=== PATIENT | female | born 1970 | race Caucasian/White ===

== ENCOUNTER 2018-04-08 11:29 | Emergency (ER) | payer MEDICAID ==
[~2018-04-08] VITALS: Ht 167.6 cm; Wt 64.8 kg
[~2018-04-08 11:29] MED LIST: BACI3.5O2 RIGHTEYE; NO HOME MEDS; RANI-366 PO; TOBR5DRO2 RIGHTEYE; ZOF4T PO; [UNRECOGNIZED DRUG - CODE] EACHEYE
[2018-04-08] MEDS ORDERED: ondansetron/PF 4mg/2ml inj IV ONE (12:05)
[2018-04-08] MEDS ORDERED: normal saline 1000ML IV soln IVB ONE (12:05)
[2018-04-08] MEDS ORDERED: morphine 4 MG/ML inj SYRINge IV PRN (12:05)
[2018-04-08 12:51] LABS: BASOPHILS % (AUTO) 0.2 % (0-1); EOSINOPHILS % (AUTO) 0.1 % (0-6); HEMATOCRIT 38.2 % (35.0-45.0); HEMOGLOBIN 11.9 g/dl (12.0-16.0); LYMPHOCYTES # (AUTO) 0.8 X10'3 (1.1-4.8); LYMPHOCYTES % (AUTO) 8.3 % (21-51); MEAN CORPUSCULAR HEMOGLOBIN 21.1 PG (27.0-31.0); MEAN CORPUSCULAR HGB CONC 31.2 % (33.0-36.5); MEAN CORPUSCULAR VOLUME 67.5 FL (78-98); MONOCYTES % (AUTO) 9.9 % (2-12); NEUTROPHILS # (AUTO) 8.1 X10'3 (1.8-7.7); NEUTROPHILS % (AUTO) 81.5 % (42-75); PLATELET COUNT 491 X10'3 (140-440); RED BLOOD COUNT 5.66 X10'6 (4.20-5.60); RED CELL DISTRIBUTION WIDTH 21.8 % (11.5-14.5); WHITE BLOOD COUNT 9.9 X10'3 (4.5-11.0)
[2018-04-08 12:52] VITALS: BP 119/70
[2018-04-08 13:02] LABS: PROTHROMBIN TIME 10.1 SECONDS (9.0-12.0)
[2018-04-08 13:05] LABS: ALANINE AMINOTRANSFERASE 19 U/L (12-78); ALBUMIN 3.3 G/DL (3.4-5.0); ALBUMIN/GLOBULIN RATIO 0.6 (1.1-1.5); ALKALINE PHOSPHATASE 121 IU/L (46-116); ANION GAP 13 (8-16); ASPARTATE AMINO TRANSFERASE 24 U/L (10-37); BILIRUBIN,TOTAL 0.5 MG/DL (0.1-1.0); BLOOD UREA NITROGEN 19 MG/DL (7-18); BUN/CREATININE RATIO 17.8 (6.6-38.0); CALCIUM 9.5 MG/DL (8.5-10.1); CHLORIDE 93 MMOL/L (99-107); CREATININE 1.07 MG/DL (0.40-0.90); GLUCOSE 98 MG/DL (70-104); LIPASE 200 U/L (73-393); POTASSIUM 3.4 MMOL/L (3.5-5.1); SODIUM 134 MMOL/L (135-145); TOTAL CARBON DIOXIDE 28.4 MMOL/L (24-32); TOTAL PROTEIN 8.9 G/DL (6.4-8.2); eGFR 55 ML/MIN
[2018-04-08] MEDS ORDERED: CIPR-230 PO (13:11)
[2018-04-08] MEDS ORDERED: ONDA4TAB9 PO (13:11)
[2018-04-08 13:19] LABS: TOTAL CELLS COUNTED 100
[2018-04-08 13:24] LABS: ANISOCYTOSIS 3+; HYPOCHROMASIA 1+; MICROCYTOSIS 2+; PLATELET ESTIMATE INCREASED; POLYCHROMASIA FEW; STOMATOCYTES 1+
== END 2018-04-08 13:44 | disposition home or self-care (01) ==
LOC: ER 11:30
DX: R11.10 Vomiting, unspecified (principal); R19.7 Diarrhea, unspecified; E86.0 Dehydration; K21.9 Gastro-esophageal reflux disease without esophagitis; J45.909 Unspecified asthma, uncomplicated; F15.90 Other stimulant use, unspecified, uncomplicated; Z90.49 Acquired absence of other specified parts of digestive tract; Z86.19 Personal history of other infectious and parasitic diseases; Z60.2 Problems related to living alone; Z59.0 Homelessness; Z56.0 Unemployment, unspecified; Z88.5 Allergy status to narcotic agent; Z79.2 Long term (current) use of antibiotics; Z79.899 Other long term (current) drug therapy
CPT/HCPCS: 36415; 80053; 83690; 85025; 85610; 96361; 96374; 99284; J2405; J2270

== ENCOUNTER 2018-08-04 09:29 | Emergency (ER) | payer MEDICAID ==
[~2018-08-04] VITALS: Ht 167.6 cm; Wt 76.0 kg
[2018-08-04 09:39] VITALS: BP 121/76
[2018-08-04] MEDS ORDERED: sulfamethoxazole/trimethoprim DS (800/160mg) tablet PO ONE (10:25)
[2018-08-04] MEDS ORDERED: cephalexin 250mg capsule PO ONE (10:25)
[2018-08-04] MEDS ORDERED: CEPH-572 PO (10:32)
[2018-08-04] MEDS ORDERED: SULF1TAB49 PO (10:32)
[2018-08-04 10:37] LABS: HEMOGLOBIN 11.7 g/dl (12.0-16.0); MEAN PLATELET VOLUME 6.9 FL (7.4-10.4); PLATELET COUNT 408 X10'3 (140-440)
[2018-08-04 10:39] LABS: HEMATOCRIT 37.8 % (35.0-45.0); MEAN CORPUSCULAR HEMOGLOBIN 22.1 PG (27.0-31.0); MEAN CORPUSCULAR HGB CONC 30.9 g/dL (33.0-36.5); MEAN CORPUSCULAR VOLUME 71.5 FL (78-98); RED BLOOD COUNT 5.29 X10'6 (4.20-5.60); RED CELL DISTRIBUTION WIDTH 22.8 % (11.5-14.5)
[2018-08-04 10:57] LABS: TOTAL CELLS COUNTED 100
[2018-08-04 10:58] LABS: ALANINE AMINOTRANSFERASE 29 U/L (12-78); ALBUMIN 4.2 G/DL (3.4-5.0); ALBUMIN/GLOBULIN RATIO 0.9 (1.1-1.5); ALKALINE PHOSPHATASE 116 IU/L (46-116); ANION GAP 12 (8-16); ANISOCYTOSIS 3+; ASPARTATE AMINO TRANSFERASE 32 U/L (10-37); BILIRUBIN,TOTAL 0.6 MG/DL (0.1-1.0); BLOOD UREA NITROGEN 19 MG/DL (7-18); BUN/CREATININE RATIO 19.8 (6.6-38.0); CALCIUM 9.9 MG/DL (8.5-10.1); CHLORIDE 100 MMOL/L (99-107); CREATININE 0.96 MG/DL (0.40-0.90); GLUCOSE 104 MG/DL (70-104); HYPOCHROMASIA 1+; MICROCYTOSIS 1+; PLATELET ESTIMATE NORMAL; POLYCHROMASIA FEW; SODIUM 137 MMOL/L (135-145); TOTAL CARBON DIOXIDE 25.3 MMOL/L (24-32); TOTAL PROTEIN 8.8 G/DL (6.4-8.2); eGFR 62 ML/MIN
--- NOTE | 2018-08-04 11:00 | NUR ---
vascular at bs
== END 2018-08-04 11:57 | disposition home or self-care (01) ==
LOC: ER 09:31
DX: L03.116 Cellulitis of left lower limb (principal); F15.90 Other stimulant use, unspecified, uncomplicated; J45.909 Unspecified asthma, uncomplicated; K21.9 Gastro-esophageal reflux disease without esophagitis; F12.90 Cannabis use, unspecified, uncomplicated; Z90.49 Acquired absence of other specified parts of digestive tract; Z59.0 Homelessness; Z56.0 Unemployment, unspecified; Z88.6 Allergy status to analgesic agent
CPT/HCPCS: 36415; 80053; 83605; 84145; 85025; 87040; 93971; 99284

== ENCOUNTER 2019-07-18 09:52 | Emergency (ER) | payer MEDICAID ==
[~2019-07-18] VITALS: Ht 167.6 cm; Wt 73.0 kg
[2019-07-18 10:36] VITALS: BP 138/101
== END 2019-07-18 10:37 | disposition home or self-care (01) ==
LOC: ER 09:53
DX: G56.02 Carpal tunnel syndrome, left upper limb (principal); J45.909 Unspecified asthma, uncomplicated; K21.9 Gastro-esophageal reflux disease without esophagitis; F10.10 Alcohol abuse, uncomplicated; F15.90 Other stimulant use, unspecified, uncomplicated; Z86.19 Personal history of other infectious and parasitic diseases; Z90.49 Acquired absence of other specified parts of digestive tract; Z59.0 Homelessness; Z56.0 Unemployment, unspecified; Z60.2 Problems related to living alone; Z88.5 Allergy status to narcotic agent; Z79.899 Other long term (current) drug therapy
CPT/HCPCS: 29260; 99283

== ENCOUNTER 2019-12-08 08:32 | Emergency (ER) | payer MEDICAID ==
[~2019-12-08] VITALS: Ht 172.7 cm; Wt 69.0 kg
[2019-12-08] MEDS ORDERED: AZIT500T9 PO (09:25)
[2019-12-08] MEDS ORDERED: ALBU8HFA PO (09:25)
[2019-12-08] MEDS ORDERED: BENZ-16 PO (09:29)
[2019-12-08 09:50] VITALS: BP 134/91
== END 2019-12-08 09:55 | disposition home or self-care (01) ==
LOC: ER 08:32
DX: J44.1 Chronic obstructive pulmonary disease with (acute) exacerbation (principal); K21.9 Gastro-esophageal reflux disease without esophagitis; F15.90 Other stimulant use, unspecified, uncomplicated; Z86.19 Personal history of other infectious and parasitic diseases; Z90.49 Acquired absence of other specified parts of digestive tract; Z98.890 Other specified postprocedural states; Z60.2 Problems related to living alone; Z59.0 Homelessness; Z56.0 Unemployment, unspecified; Z88.5 Allergy status to narcotic agent; Z79.2 Long term (current) use of antibiotics; Z79.899 Other long term (current) drug therapy
CPT/HCPCS: 71045; 99283

== ENCOUNTER 2020-01-30 09:55 | Emergency (ER) | payer MEDICAID ==
[~2020-01-30] VITALS: Ht 172.7 cm; Wt 72.7 kg
[~2020-01-30 09:55] MED LIST changes: +AZIT500T9 PO
[2020-01-30 10:20] VITALS: BP 138/98
--- NOTE | 2020-01-30 12:15 | NUR ---
Attempted to call patient from lobby x3, however, patient was not in lobby. Patient called with no answer.
== END 2020-01-30 12:17 | disposition left against medical advice (07) ==
LOC: ER 09:57
DX: J44.9 Chronic obstructive pulmonary disease, unspecified (principal); Z53.21 Procedure and treatment not carried out due to patient leaving prior to being seen by health care provider

== ENCOUNTER 2020-10-13 07:03 | Emergency (ER) | payer MEDICAID ==
[~2020-10-13] VITALS: Ht 170.2 cm; Wt 67.3 kg
[2020-10-13] MEDS ORDERED: dexamethasone sod phosphate 10mg/ml inj IV STA (07:23)
[2020-10-13] MEDS ORDERED: LIDOcaine 1% W/epiNEPHrine 1:200,000 10ml vial IJ ONE (07:25)
[2020-10-13] MEDS ORDERED: dexamethasone sod phosphate 10mg/ml inj IM STA (07:56)
[2020-10-13] MEDS: clindamycin phosphate 150mg/ml inj. IM ONE ×2 (08:00→08:14)
[2020-10-13 08:06] LABS: BASOPHILS % (AUTO) 0.2 % (0-1); EOSINOPHILS # (AUTO) 0.1 X10'3 (0-0.9); EOSINOPHILS % (AUTO) 0.4 % (0-6); HEMATOCRIT 39.2 % (35.0-45.0); HEMOGLOBIN 12.9 g/dl (12.0-16.0); LYMPHOCYTES % (AUTO) 7.8 % (21-51); MEAN CORPUSCULAR HEMOGLOBIN 27.5 PG (27.0-31.0); MEAN CORPUSCULAR HGB CONC 32.9 g/dL (33.0-36.5); MEAN CORPUSCULAR VOLUME 83.7 FL (78-98); MEAN PLATELET VOLUME 6.6 FL (7.4-10.4); MONOCYTES # (AUTO) 1.5 X10'3 (0-0.9); MONOCYTES % (AUTO) 11.5 % (2-12); NEUTROPHILS # (AUTO) 10.2 X10'3 (1.8-7.7); NEUTROPHILS % (AUTO) 80.1 % (42-75); PLATELET COUNT 387 X10'3 (140-440); RED BLOOD COUNT 4.68 X10'6 (4.20-5.60); RED CELL DISTRIBUTION WIDTH 15.2 % (11.5-14.5); WHITE BLOOD COUNT 12.8 X10'3 (4.5-11.0)
[2020-10-13] MEDS: clindamycin 600mg/D5W 50ml 50 ML IV ONE ×2 (08:13→08:34)
[2020-10-13 08:20] LABS: ALANINE AMINOTRANSFERASE 15 U/L (12-78); ALBUMIN 3.1 G/DL (3.4-5.0); ALBUMIN/GLOBULIN RATIO 0.7 (1.1-1.5); ALKALINE PHOSPHATASE 115 IU/L (46-116); ANION GAP 10 (8-16); ASPARTATE AMINO TRANSFERASE 17 U/L (10-37); BLOOD UREA NITROGEN 11 MG/DL (7-18); BUN/CREATININE RATIO 14.3 (6.6-38.0); CALCIUM 8.9 MG/DL (8.5-10.1); CHLORIDE 102 MMOL/L (99-107); CREATININE 0.77 MG/DL (0.40-0.90); GLUCOSE 122 MG/DL (70-104); POTASSIUM 3.6 MMOL/L (3.5-5.1); SODIUM 137 MMOL/L (135-145); TOTAL CARBON DIOXIDE 25.2 MMOL/L (24-32); TOTAL PROTEIN 7.6 G/DL (6.4-8.2); eGFR 79 ML/MIN
[2020-10-13] MEDS ORDERED: iohexol 300mg/ml 100ml inj. ONE (08:31)
[2020-10-13] MEDS ORDERED: normal saline 1000ML IV soln IVB ONE (08:40)
[2020-10-13 10:23] VITALS: BP 105/68
--- NOTE | 2020-10-13 12:06 | NUR ---
Patient not in room. Unable to do welfare check due to only having a PO BOX. Contacted sister who states will try and find patient and sees that she returns.
== END 2020-10-13 12:30 | disposition left against medical advice (07) ==
LOC: ER 07:04
DX: J36 Peritonsillar abscess (principal); J44.9 Chronic obstructive pulmonary disease, unspecified; K21.9 Gastro-esophageal reflux disease without esophagitis; F10.10 Alcohol abuse, uncomplicated; F15.90 Other stimulant use, unspecified, uncomplicated; Z86.19 Personal history of other infectious and parasitic diseases; Z90.49 Acquired absence of other specified parts of digestive tract; Z60.2 Problems related to living alone; Z59.0 Homelessness; Z56.0 Unemployment, unspecified; Z88.5 Allergy status to narcotic agent; Z79.899 Other long term (current) drug therapy; Y90.9 Presence of alcohol in blood, level not specified
CPT/HCPCS: 36415; 70491; 80053; 85025; 86140; 96361; 96365; 96375; 99285; J1100; J7030; Q9967; J3490

== ENCOUNTER 2020-10-13 14:38 | Emergency (ER) | payer MEDICAID ==
[~2020-10-13] VITALS: Ht 170.2 cm; Wt 68.1 kg
[2020-10-13] MEDS ORDERED: normal saline 1000ml 1,000 ML IV ONE (15:25)
[2020-10-13] MEDS ORDERED: piperacillin/tazo 3.375gm/50ml 50 ML IV SCH (16:00)
--- NOTE | 2020-10-13 16:13 | NUR ---
PT RETURNED, IV IN LEFT FOOT.
[2020-10-13] MEDS ORDERED: dexamethasone sod phosphate 10mg/ml inj IV STA (16:37)
[2020-10-13] MEDS ORDERED: clindamycin 600mg/D5W 50ml 50 ML IV ONE (16:40)
[2020-10-13] MEDS ORDERED: normal saline 1000ML IV soln IVB ONE (20:00)
[2020-10-13] MEDS ORDERED: clindamycin 600mg/D5W 50ml 50 ML IV SCH (20:00)
[2020-10-13 20:33] LABS: COLOR,URINE YELLOW (Yellow); GLUCOSE, URINE NEGATIVE (Neg); KETONES,URINE NEGATIVE (Neg); LEUKOCYTE ESTERASE ,URINE NEGATIVE (Neg); NITRITES, URINE NEGATIVE (Neg); OCCULT BLOOD,URINE MODERATE (Neg); PROTEIN,URINE TRACE mg/dl (Neg)
[2020-10-13 20:43] LABS: CLARITY,URINE SLIGHTLY CLOUDY (Clear); UA COLLECTION TYPE CLN CATCH MIDSTREAM
[2020-10-13] MEDS ORDERED: vancomycin/NS 1 GM ADD-VANTAGE 250 ML IV ONE (20:45)
[2020-10-13 20:46] LABS: TRICHOMONAS,URINE FEW /HPF (NEGATIVE); URINE AMPHETAMINE SCREEN POSITIVE (Neg); URINE BARBITUATE SCREEN NEGATIVE (Neg); URINE BENZODIAZEPINES SCREEN NEGATIVE (Neg); URINE CANNABINOID SCREEN POSITIVE (Neg); URINE COCAINE SCREEN NEGATIVE (Neg); URINE METHADONE SCREEN NEGATIVE (Neg); URINE OPIATE SCREEN NEGATIVE (Neg); URINE PHENCYCLIDINE SCREEN NEGATIVE (Neg); WBC,URINE 0-4 /HPF (0-4)
[2020-10-13 20:47] LABS: BACTERIA,URINE FEW /HPF (Neg); RBC,URINE 0-2 /HPF (0-2)
[2020-10-13 20:48] LABS: MUCUS STRANDS FEW /LPF (Neg); SQUAMOUS EPITHELIAL CELL,UR MODERATE /LPF (FEW)
[2020-10-13 20:55] LABS: BASOPHILS % (AUTO) 0.1 % (0-1); EOSINOPHILS % (AUTO) 0 % (0-6); HEMATOCRIT 36.8 % (35.0-45.0); HEMOGLOBIN 12.3 g/dl (12.0-16.0); LYMPHOCYTES # (AUTO) 0.6 X10'3 (1.1-4.8); LYMPHOCYTES % (AUTO) 3.9 % (21-51); MEAN CORPUSCULAR HEMOGLOBIN 28.1 PG (27.0-31.0); MEAN CORPUSCULAR HGB CONC 33.5 g/dL (33.0-36.5); MEAN CORPUSCULAR VOLUME 83.8 FL (78-98); MEAN PLATELET VOLUME 6.8 FL (7.4-10.4); MONOCYTES # (AUTO) 0.4 X10'3 (0-0.9); MONOCYTES % (AUTO) 2.4 % (2-12); NEUTROPHILS # (AUTO) 14.7 X10'3 (1.8-7.7); NEUTROPHILS % (AUTO) 93.6 % (42-75); PLATELET COUNT 442 X10'3 (140-440); RED BLOOD COUNT 4.39 X10'6 (4.20-5.60); RED CELL DISTRIBUTION WIDTH 15.1 % (11.5-14.5); WHITE BLOOD COUNT 15.7 X10'3 (4.5-11.0)
[2020-10-13] MEDS ORDERED: dexamethasone sod phosphate 10mg/ml inj IV SCH (21:00)
[2020-10-13 21:13] LABS: ALANINE AMINOTRANSFERASE 18 U/L (12-78); ALBUMIN 3.1 G/DL (3.4-5.0); ALBUMIN/GLOBULIN RATIO 0.7 (1.1-1.5); ALKALINE PHOSPHATASE 114 IU/L (46-116); ANION GAP 11 (8-16); ASPARTATE AMINO TRANSFERASE 15 U/L (10-37); BILIRUBIN,TOTAL 0.7 MG/DL (0.1-1.0); BLOOD UREA NITROGEN 13 MG/DL (7-18); BUN/CREATININE RATIO 17.6 (6.6-38.0); CALCIUM 9.1 MG/DL (8.5-10.1); CHLORIDE 104 MMOL/L (99-107); CREATININE 0.74 MG/DL (0.40-0.90); GLUCOSE 138 MG/DL (70-104); POTASSIUM 3.7 MMOL/L (3.5-5.1); SODIUM 138 MMOL/L (135-145); TOTAL CARBON DIOXIDE 22.7 MMOL/L (24-32); TOTAL PROTEIN 7.5 G/DL (6.4-8.2); eGFR 83 ML/MIN
--- NOTE | 2020-10-14 | NUR ---
ICU tele MD assessed patient's swallowing abilities. okayed a CL diet. Pt was given a cup of water and 2x jellos. Addendum: 10/14/20 at 0003 by DORETHA Note orginally written by Anaid Waterman RN
[2020-10-14] MEDS ORDERED: ipratropium/albuterol 3ml nebule NEB PRN (00:30)
[2020-10-14] MEDS ORDERED: potassium Cl 20 mEq SR tablet PO PRN ×2 (00:30)
[2020-10-14] MEDS ORDERED: acetaminophen 325mg tablet PO PRN ×2 (00:30)
[2020-10-14] MEDS ORDERED: dextrose 5%-1/2 normal saline 1,000 ML IV SCH (01:00)
[2020-10-14] MEDS: dexamethasone sod phosphate 10mg/ml inj IV SCH ×2 (01:51→07:50)
[2020-10-14] MEDS ORDERED: piperacillin/tazo 3.375gm/50ml 50 ML IV SCH ×2 (08:00)
[2020-10-14] MEDS ORDERED: VANCOmycin 1250MG/NS 250ml Bag 250 ML IV SCH (08:00)
[2020-10-14] MEDS ORDERED: pantoprazole 40 MG vial IV SCH (08:00)
[2020-10-14] MEDS ORDERED: enoxaparin 40mg/0.4ml syringe SUBCUT SCH (08:00)
[2020-10-14] MEDS ORDERED: vancomycin/NS 1 GM ADD-VANTAGE 250 ML IV SCH (09:00)
[2020-10-14] MEDS ORDERED: nicotine 21mg patch - 24 hr TD ONE (09:35)
--- NOTE | 2020-10-14 09:45 | NUR ---
DR BORAJS SAW PATIENT AND PATIENT WILL BE ADMITTED TO THE HOSPITALIST SERVICE
--- NOTE | 2020-10-14 10:19 | NUR ---
PHOTOGRAPHER FINISH HAO IN ROOM WITH PATIENT , PATIENT IS CURRENTLY LIVING WITH HER SISTER
[2020-10-14 10:23] VITALS: BP 91/68
--- NOTE | 2020-10-14 12:33 | NUR ---
I noticed patient leaving room with IV pole and belongings bag which I thought was odd that patient was bring belongings bag to bathroom with her. Patient had gone to the bathroom multiple times today without bring belongings bag with her. I followed closely behind patient as she went by the staff break room and started to go out to the main lobby. I tried to talk to her about coming back at which patient continued to mumble something under her breath. I gently grabbed her right arm to get her attention because she still had her IV in place and I needed to remove before she left. I told her that she can leave, but she can't leave with an IV. Patient stated, "No one is doing anything for her." I stated to her that we are caring for her and that she is getting antibiotics. I also told her, "I had no idea anything was wrong until now." She stated that she just had to leave and I educated patient regarding risks upto and including . I asked patient if she would wait to discuss this with her doctor and she refused. I then pulled out PIV then patient immediated signed AMA form and walked out ambulance bay doors.
[2020-10-14] MEDS ORDERED: clindamycin 600mg/D5W 50ml 50 ML IV SCH (14:00)
[2020-10-14] MEDS ORDERED: lactobacillus rhamnosus 10,000 MMU CELLS/CAPSULE PO SCH (20:00)
[2020-10-15] MEDS ORDERED: VANCOMYCIN LEVEL IV ONE (08:30)
== END 2020-10-14 12:43 | disposition left against medical advice (07) ==
LOC: ER 14:39 → UNDOADMIN 10-14 00:27 → ED HOLD 10-14 00:27 → UNDODISIN 10-14 12:44
DX: A41.9 Sepsis, unspecified organism (principal); J36 Peritonsillar abscess; F15.10 Other stimulant abuse, uncomplicated
CPT/HCPCS: 36415; 80053; 80305; 81001; 83605; 84145; 85025; 87081; 96365; 96366; 96367; 96368; 96372; 96375; 96376; 99291; C9113; J1100; J2543; J3370; J7030; J1650; J3490

== ENCOUNTER 2022-04-22 20:09 | Emergency (ER) | payer MEDICAID ==
[~2022-04-22] VITALS: Ht 170.2 cm; Wt 65.0 kg
[~2022-04-22 20:09] MED LIST changes: -AZIT500T9 PO; -BACI3.5O2 RIGHTEYE; -RANI-366 PO; -TOBR5DRO2 RIGHTEYE; -ZOF4T PO; -[UNRECOGNIZED DRUG - CODE] EACHEYE
[2022-04-22] MEDS ORDERED: ibuprofen tablet 400 MG TABLET PO ONE (23:10)
[2022-04-23 00:09] VITALS: BP 145/97
== END 2022-04-23 00:14 | disposition home or self-care (01) ==
LOC: ER 20:10
DX: M25.532 Pain in left wrist (principal); J44.9 Chronic obstructive pulmonary disease, unspecified; K21.9 Gastro-esophageal reflux disease without esophagitis; F17.200 Nicotine dependence, unspecified, uncomplicated; F15.20 Other stimulant dependence, uncomplicated; Z88.5 Allergy status to narcotic agent; Z98.890 Other specified postprocedural states; Z90.49 Acquired absence of other specified parts of digestive tract; Z59.00 Homelessness unspecified; Z56.0 Unemployment, unspecified
CPT/HCPCS: 29125; 73110; 99283